=== PATIENT | female | born 1950 | race Caucasian/White ===

== ENCOUNTER 2018-02-17 13:20 | Emergency (ER) | payer OTHER, MEDICAID ==
[~2018-02-17] VITALS: Ht 162.6 cm; Wt 72.6 kg
[2018-02-17 13:38] VITALS: Ht 162.6 cm; Wt 72.6 kg
[2018-02-17 15:30] VITALS: BP 118/76
== END 2018-02-17 16:11 | disposition home or self-care (01) ==
LOC: ED 13:20
DX: S39.011A Strain of muscle, fascia and tendon of abdomen, initial encounter (principal); I10 Essential (primary) hypertension; J44.9 Chronic obstructive pulmonary disease, unspecified; Z90.89 Acquired absence of other organs; Z90.09 Acquired absence of other part of head and neck; X58.XXXA Exposure to other specified factors, initial encounter; Y93.89 Activity, other specified; Y92.89 Other specified places as the place of occurrence of the external cause; Y99.8 Other external cause status
CPT/HCPCS: J3010; Q0092; Q0162

== ENCOUNTER 2018-02-25 19:37 | Inpatient (IN) | payer OTHER, MEDICAID ==
[~2018-02-25] VITALS: Ht 154.9 cm; Wt 81.0 kg
[2018-02-25 19:52] VITALS: Ht 154.9 cm; Wt 81.0 kg
[2018-02-25 21:19] LABS: BASOPHIL % 0.6 % (0-2); PLATELET COUNT 291 x10^3mcL (130-400)
[2018-02-25 21:25] LABS: CALCIUM 9.7 mg/dL (8.5-10.1); CARBON DIOXIDE 25.9 mmol/L (21-32); CHLORIDE SERUM 105 mmol/L (98-107); CREATININE SERUM 0.7 mg/dL (0.6-1.0); GFR1 > 60 mL/min; GLUCOSE SERUM 112 mg/dL (74-106); POTASSIUM SERUM 3.6 mmol/L (3.5-5.1); SODIUM SERUM 138 mmol/L (136-145)
[2018-02-25 21:30] LABS: ALBUMIN 3.9 g/dL (3.4-5.0); ALKALINE PHOSPHATASE 148 U/L (46-116); ALT/SGPT 53 U/L (14-59); AST/SGOT 48 U/L (15-37); BILIRUBIN TOTAL 0.7 mg/dL (0.20-1.00); CHOLESTEROL 138 mg/dL (<200); CHOLESTEROL/HDL RATIO 2.7; HDL CHOLESTEROL 51 mg/dL (40-60); LIPASE 281 IU/L (73-393); TRIGLYCERIDES 97 mg/dL (<150)
[2018-02-25 21:31] LABS: TOTAL PROTEIN, SERUM 8.5 g/dL (6.4-8.2)
[2018-02-25 21:32] LABS: RED CELL DISTRIBUTION WIDTH 14.7 % (11.5-14.5)
[2018-02-25 21:51] LABS: T3 TOTAL 2.92 ng/mL
[2018-02-25 22:02] LABS: FREE T4 1.35 ng/dL (0.76-1.46)
[2018-02-25 22:04] LABS: FREE THYROXINE INDEX 4.3 ug/dL (1.4-4.5); T4(THYROXINE) 21.5 ug/dL (4.7-13.3)
[2018-02-26] VITALS (7 sets, daily range): BP systolic 147–193; BP diastolic 65–92
[2018-02-26 08:28] LABS: microscopic required? YES; urine erythrocyte 3+ (NEGATIVE)
[2018-02-27 05:51] VITALS: BP 150/79
[2018-02-27 10:32] VITALS: BP 171/81
[2018-02-27 16:48] VITALS: BP 164/81
[2018-02-27 22:08] VITALS: BP 150/80
[2018-02-28 06:03] VITALS: BP 128/75
[2018-02-28 08:44] VITALS: BP 148/84
[2018-02-28 12:18] VITALS: BP 111/79
[2018-02-28 16:17] VITALS: BP 113/72
[2018-02-28 21:20] VITALS: BP 120/64
[2018-03-01 05:40] VITALS: BP 149/71
[2018-03-01 08:51] VITALS: BP 160/85
[2018-03-01 11:55] VITALS: BP 163/82
[2018-03-01 16:39] VITALS: BP 146/70
[2018-03-01 21:08] VITALS: BP 134/75
[2018-03-02 06:06] VITALS: BP 148/76
[2018-03-02 08:54] VITALS: BP 120/76
[2018-03-02 15:59] VITALS: BP 143/70
[2018-03-02 16:18] VITALS: BP 117/77; BP 120/76
[2018-03-02 17:07] VITALS: BP 120/76
[2018-03-02 20:25] VITALS: BP 136/75
[2018-03-03 07:04] VITALS: BP 144/81
[2018-03-03 08:33] VITALS: BP 136/82
[2018-03-03 13:46] VITALS: BP 117/77
== END 2018-03-03 14:45 | disposition home health service (06) | DRG 552 ==
LOC: ED 19:37 → DU 22:46
PROVIDERS: Internal Medicine; Specialist
DX: S32.10XA Unspecified fracture of sacrum, initial encounter for closed fracture (principal); S32.511A Fracture of superior rim of right pubis, initial encounter for closed fracture; J44.1 Chronic obstructive pulmonary disease with (acute) exacerbation; J44.0 Chronic obstructive pulmonary disease with (acute) lower respiratory infection; J20.9 Acute bronchitis, unspecified; R91.8 Other nonspecific abnormal finding of lung field; M19.90 Unspecified osteoarthritis, unspecified site; I10 Essential (primary) hypertension; M60.9 Myositis, unspecified; B18.2 Chronic viral hepatitis C; F17.210 Nicotine dependence, cigarettes, uncomplicated; Z68.26 Body mass index [BMI] 26.0-26.9, adult; Z72.0 Tobacco use; X58.XXXA Exposure to other specified factors, initial encounter; Y92.009 Unspecified place in unspecified non-institutional (private) residence as the place of occurrence of the external cause
CPT/HCPCS: 83880; 84439; 97110-GP; 97116-GP; 97530-GP; J1885; J1956; J2270; J2550; J3010; J7030; J7040; J7620; Q0092; Q9967

== ENCOUNTER 2018-03-10 16:45 | Emergency (ER) | payer OTHER, MEDICAID ==
[~2018-03-10] VITALS: Ht 162.6 cm; Wt 64.6 kg
[2018-03-10 17:07] VITALS: Ht 162.6 cm; Wt 64.6 kg
[2018-03-10 20:12] VITALS: BP 157/98
== END 2018-03-10 20:28 | disposition home or self-care (01) ==
LOC: ED 16:45
DX: S32.501D Unspecified fracture of right pubis, subsequent encounter for fracture with routine healing (principal); T40.2X5D Adverse effect of other opioids, subsequent encounter; J44.9 Chronic obstructive pulmonary disease, unspecified; I10 Essential (primary) hypertension; F31.9 Bipolar disorder, unspecified; Z90.89 Acquired absence of other organs; X58.XXXD Exposure to other specified factors, subsequent encounter
CPT/HCPCS: J1885